=== PATIENT | male | born 1970 | race Caucasian/White ===

== ENCOUNTER 2017-06-15 18:54 | Emergency (ER) | payer SELFPAY ==
[~2017-06-15] VITALS: Ht 182.9 cm; Wt 103.6 kg
[2017-06-15 19:05] VITALS: BP 126/78
[2017-06-15 20:44] LABS: HEMATOCRIT 43.2 % (38.0-50.0); MCH 28.5 PG (29.0-34.0); MCHC 32.9 G/DL (30.0-36.0); MCV 86.6 FL (86-99); MEAN PLAT.VOLUME 10.9 uM^3 (9.0-12.4); PLATELET COUNT 207 K/uL (156-360); RBC DIS.WIDTH-CV 12.9 % (11.8-14.6); RBC DIS.WIDTH-SD 40.3 % (39-53); RED BLOOD COUNT 4.99 M/uL (4.00-5.50); WHITE BLOOD COUNT 9.6 K/uL (4.1-10.2)
[2017-06-15 20:49] LABS: CHLORIDE 107 mEq/L (99-109); POTASSIUM 4.5 mEq/L (3.7-5.4); SODIUM 142 mEq/L (136-147)
[2017-06-15 20:51] LABS: GLUCOSE 104 mg/dL (70-99)
[2017-06-15 20:52] LABS: ANION GAP 11 MEQ/L (2-14)
[2017-06-15 20:55] LABS: GFR ESTIMATE (CALCULATED) > 59 mL/min/
[2017-06-15 20:56] LABS: UREA NITROGEN (BUN) 11 mg/dL (9-23)
== END 2017-06-15 21:00 | disposition left against medical advice (07) ==
LOC: EME 18:54
DX: R42 Dizziness and giddiness (principal); Z53.21 Procedure and treatment not carried out due to patient leaving prior to being seen by health care provider
CPT/HCPCS: 80048; 85027